=== PATIENT | male | born 1980 | race Caucasian/White ===

== ENCOUNTER 2021-09-02 12:32 | Emergency (ER) | payer OTHER, SELFPAY ==
[2021-09-02 12:42] VITALS: BP 150/105; PULSE 84; RESP 16; TEMP 37.2; O2SAT 100
--- NOTE | 2021-09-02 14:47 | ED.GENADULT ---
HPI - General Adult General Chief complaint: Skin/Abscess/Foreign Body Stated complaint: Insect Bite Time Seen by Provider: 09/02/21 14:47 Source: patient Mode of arrival: ambulatory Limitations: no limitations History of Present Illness HPI narrative: 41-year-old male presented for complaint of right lower abdominal skin changes after he was bit by a tick which he pulled off of his abdomen this morning. In the [place] yesterday. He states this is happened many times, however this time he noticed redness and mild pain surrounding the site where the tick was attached. He states he was able to pull it off, however it broke in half and is concerned he might have retained fragments of the tick in the skin. Pt Circled the area this morning, does not appear changed. Denies nausea, vomiting, fever or chills. Related Data Allergies Allergy/AdvReac Type Severity Reaction Status Date / Time Penicillins Allergy Unknown Rash Unverified 09/02/21 13:36 Review of Systems Review of Systems: CONSTITUTIONAL: Denies body aches, fever, chills, or sweats. EYES: Denies visual changes, redness, or discharge. ENT: Denies rhinorrhea, congestion, sore throat, or otalgia. CARDIOVASCULAR: Denies chest pain, palpitations, or edema. RESPIRATORY: Denies cough or dyspnea. GASTROINTESTINAL: Denies abdominal pain, nausea, vomiting, or diarrhea. GENITOURINARY: Denies dysuria or hematuria. SKIN: red round area to right lower abd MUSCULOSKELETAL: Denies back pain, joint pain, or myalgia. NEUROLOGIC: Denies headache, numbness, tingling, or weakness. PSYCH: Denies depression or anxiety. PMFSH Comments At time of signature, I have reviewed and agree with nursing past medical, surgical, social and family history unless otherwise noted. Please see nursing chart for further information. There is no relevant family history pertinent to the presenting complaint Exam Narrative: GENERAL: Well-appearing, well-nourished HEAD: Normocephalic, atraumatic. EYES: PERRLA, conjunctivae clear, and EOMI. ENT: Mucous membranes moist. Oropharynx without edema, erythema or lesions. NECK: Supple. No lymphadenopathy CHEST: Clear to auscultation. No respiratory distress. HEART: Regular rate and rhythm. SKIN: Warm, dry. Patch of erythema approx 1inch diameter to RLQ, center with black scab approx 2mm, no induration, fluctuance, or drainage NEURO: Alert and oriented x3. PSYCH: Normal mood and affect Course Course Emergency Course: Patient is aware of diagnosis, understands and agrees to treatment plan. Anticipatory guidance given. Patient agrees to follow-up as directed and is aware of reasons to seek care at the emergency department. Portions of this record may have been created with voice recognition software Level of Care: Express Care Visit Vital Signs Vital signs: Vital Signs Temperature 99 F 09/02/21 12:42 Pulse Rate 84 09/02/21 12:42 Respiratory Rate 16 09/02/21 12:42 Blood Pressure 150/105 H 09/02/21 12:42 Pulse Oximetry 100 09/02/21 12:42 Temperature 99 F 09/02/21 12:42 Pulse Rate 84 09/02/21 12:42 Respiratory Rate 16 09/02/21 12:42 Blood Pressure 150/105 H 09/02/21 12:42 Pulse Oximetry 100 09/02/21 12:42 Reviewed Medical Decision Making MDM Narrative Medical decision making narrative: Does not appear at this time to be erythema multiforme, bullous, SJS, TEN; no evidence at this time to suggest RMSF, endocarditis or Lyme disease patient looks well, no neurologic signs or symptoms; no headache, photophobia or neck pain; afebrile; appropriate for initial outpatient treatment; advised warm compresses and abx; discussed the importance of follow-up, patient agrees Instructed patient to go to nearest ER immediately for any worsening symptoms including but not limited to: fever, spreading rash, pain, sore throat, headache, dizziness, chest pain, trouble breathing, or any symptoms concerning to the patient. Differential Diagnosis Differ
== END 2021-09-02 15:00 | disposition home or self-care (01) ==
PROVIDERS: Emergency Provider Nurse Practitioner Family
DX: S30.861A Insect bite (nonvenomous) of abdominal wall, initial encounter (principal); W57.XXXA Bitten or stung by nonvenomous insect and other nonvenomous arthropods, initial encounter
CPT/HCPCS: 99203; G0463

== ENCOUNTER 2023-09-17 08:46 | Emergency (ER) | payer OTHER, SELFPAY ==
--- NOTE | ~2023-09-17 | XR_ITS ---
EXAMINATION: XR knee RT 3V DATE: 09/17/2023 09:38 INDICATION: Right knee pain. TECHNIQUE: 3 views of right knee were obtained. COMPARISON: None. FINDINGS: Bone alignment is normal. No fracture. 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 There is mild tricompartmental osteoart hritis. There is a small knee joint effusion. IMPRESSION: 1. Mild right knee osteoarthritis. 2. Small right knee joint effusion. Reviewed, dictated and finalized at location A.
[2023-09-17 08:47] VITALS: BP 151/87; PULSE 91; RESP 18; TEMP 36.6; O2SAT 100
--- NOTE | 2023-09-17 11:08 | ED.LOWEXIN ---
HPI - Extremity Injury (Lower) General Chief Complaint: Extremity Injury, Lower Stated Complaint: right knee pain Time Seen by Provider: 09/17/23 10:29 Source: patient Mode of arrival: ambulatory Limitations: no limitations History of Present Illness HPI Narrative: Patient is a 43-year-old male who presents the ED with report of right knee pain. Patient reports having pain to his R medial knee intermittently for the last 1.5 weeks. Denies any direct injury but notes he recently went on vacation with his family and did a lot of walking which has since aggravated his knee. Complains of pain with certain movements. Has been taking naproxen without much improvement. Denies swelling of knee or lower leg. Denies calf pain. Denies redness or warmth. Denies chest pain or shortness breath. Related Data Allergies Allergy/AdvReac Type Severity Reaction Status Date / Time Penicillins Allergy Unknown Rash Verified 09/17/23 08:46 Review of Systems Review of Systems: CONSTITUTIONAL: Denies fever, chills, or sweats. CARDIOVASCULAR: Denies chest pain. RESPIRATORY: Denies dyspnea. MUSCULOSKELETAL: See HPI. NEUROLOGIC: Denies headache, dizziness, numbness, or weakness. All systems reviewed & are unremarkable except as noted in HPI and below Exam Narrative: GENERAL: Well appearing, well-nourished, non-toxic, in no acute distress. HEAD: Normocephalic, atraumatic. RESPIRATORY: Airway patent, respirations nonlabored. CARDIOVASCULAR: Regular rate and rhythm. Pedal pulses intact. MUSCULOSKELETAL: Moves all extremities. No gross deformities. No significant limited ROM of R knee. TTP along medial joint space of right knee. Discomfort reported with valgus stress testing. No significant swelling of knee. No redness or warmth in the. No lower extremity swelling. No calf tenderness. Sensation is intact throughout right lower extremity. SKIN: Warm, dry, normal color. NEURO: A&O X3. Speech clear. PSYCHIATRIC: Appropriate mood and affect. Normal interaction. Course Vital Signs Vital signs: Vital Signs Temperature 97.8 F 09/17/23 08:47 Pulse Rate 91 09/17/23 08:47 Respiratory Rate 18 09/17/23 08:47 Blood Pressure 151/87 H 09/17/23 08:47 Pulse Oximetry 100 09/17/23 08:47 Oxygen Delivery Room Air 09/17/23 08:47 Temperature 97.8 F 09/17/23 08:47 Pulse Rate 91 09/17/23 08:47 Respiratory Rate 18 09/17/23 08:47 Blood Pressure 151/87 H 09/17/23 08:47 Pulse Oximetry 100 09/17/23 08:47 Oxygen Delivery Room Air 09/17/23 08:47 MDM - Extremity Injury (Lower) MDM Narrative Medical decision making narrative: Patient?s injury is consistent with musculoskeletal etiology. No signs of neurologic or vascular compromise on physical examination. Compartments are soft without signs of compartment syndrome. XR showing small joint effusion, no acute osseous abnormality, does show mild osteoarthritis. Pain is consistent with the strain. Discussed possibility of meniscal or ligamentous injury. No evidence of DVT on exam. No lower extremity swelling. No calf tenderness. Low suspicion for DVT at this time. Patient otherwise low risk Wells score. Patient is felt to be stable for discharge home and further outpatient management and treatment. Placed in knee immobilizer in the ED. Given crutches. Advised to continue Tylenol and ibuprofen as needed for pain. Will refer to orthopedics for further evaluation if needed. Discussed rice treatment, reasons to return. Patient in agreement with plan. Discharged in stable condition. Medical Records Attestation: I reviewed the patient's medical records. Imaging Data Attestation: I personally reviewed and interpreted this imaging study as follows: Radiologist's impression: ITS Impressions Knee X-Ray 09/17/23 09:41 IMPRESSION: 1. Mild right knee osteoarthritis. 2. Small right knee joint effusion. Discharge Plan Discharge Clinical Impression: Effus
== END 2023-09-17 11:36 | disposition home or self-care (01) ==
PROVIDERS: Emergency Provider Physician Assistant; PCP Physician Assistant; Referring Provider Family Medicine
DX: S86.911A Strain of unspecified muscle(s) and tendon(s) at lower leg level, right leg, initial encounter (principal); M23.91 Unspecified internal derangement of right knee; M25.461 Effusion, right knee; X58.XXXA Exposure to other specified factors, initial encounter
CPT/HCPCS: 73562; 99283

== ENCOUNTER 2024-05-06 15:59 | Outpatient (CLI) | payer OTHER, SELFPAY ==
[2024-05-06 16:22] LABS: Basophils Absolute Auto 0.02 K/mm3 (0.00-0.10); Basophils Percent Auto 0.3 % (0.0-1.0); Eosinophils Absolute Auto 0.07 K/mm3 (0.02-0.50); Hematocrit 46.7 % (40.0-54.0); Hemoglobin 16.2 g/dL (14.0-18.0); Immature Granulocyte Absolute 0.01 K/mm3 (0.00-0.00); Immature Granulocyte Percent A 0.1 % (0.0-0.0); Lymphocytes Absolute Auto 2.05 K/mm3 (1.10-4.50); Lymphocytes Percent Auto 29.7 % (18.0-42.0); Mean Corpuscular HGB Conc 34.7 g/dL (32-36); Mean Corpuscular Volume 89.5 fL (78.0-102.0); Mean Platelet Volume 9.1 fl (8.7-11.0); Monocytes Absolute Auto 0.99 K/mm3 (0.10-0.90); Monocytes Percent Auto 14.3 % (2.0-11.0); Neutrophils Absolute Auto 3.77 K/mm3 (1.70-7.20); Neutrophils Percent Auto 54.6 % (50.0-70.0); Platelet Count Result 316 K/mm3 (150-420); Red Blood Count 5.22 M/mm3 (4.70-6.10); Red Cell Distribution Width 12.2 % (11.6-14.4); White Blood Count 6.9 K/mm3 (4.8-10.8)
[2024-05-06 16:23] LABS: Add Urine Microscopic? NO; Appearance Urine Clear (Clear); Bilirubin Urine Negative (Negative); Blood Urine Negative (Negative); Color Urine Light Yellow (Yellow); Glucose Urine UA Negative (Negative); Ketones Urine Negative (Negative); Leukocyte Esterase Ur Negative (Negative); Nitrate Urine Negative (Negative); Protein Urine Negative (Negative); Specific Grav Ur 1.015 (1.010-1.020); Urobilinogen Urine 0.2 mg/dL (0.2-1.0)
[2024-05-06 16:40] LABS: Hemoglobin A1C 5.4 % (<5.7)
[2024-05-06 17:04] LABS: Alanine Aminotransferase 38 U/L (16-63); Albumin Level 4.2 g/dL (3.4-5.0); Alkaline Phosphatase 89 U/L (46-116); Anion Gap 10 mmol/L (4-12); Aspartate Amino Transferase 20 U/L (15-37); Bilirubin,Total 1.9 mg/dL (0.00-1.00); Blood Urea Nitrogen 19 mg/dL (7-18); Calcium 9.2 mg/dL (8.5-10.1); Carbon Dioxide 29 mmol/L (21-32); Chloride 100 mmol/L (98-108); Cholesterol 159 mg/dL (0-200); Estimated Glomerular Filt Rate > 60; Glucose 85 mg/dL (70-99); HDL Direct 54 mg/dL (40-60); LDL Cholesterol Calculated 88 mg/dL (<130); Osmolality Calculated 289 mOsm/kg (285-295); Potassium 4.4 mmol/L (3.5-5.1); Prostate Specific Antigen 1.4 ng/mL (< OR = 4.0); Sodium 139 mmol/L (136-145); Triglycerides 85 mg/dL (0-150)
[2024-05-06 17:19] LABS: Thyroid Stimulating Hormone Reflex 1.49 u/IU/mL (0.36-3.74)
== END 2024-05-06 16:00 | disposition home or self-care (01) ==
LOC: CHSLAB 16:00
PROVIDERS: PCP Nurse Practitioner Family; Visit Provider Nurse Practitioner Family
DX: Z13.1 Encounter for screening for diabetes mellitus (principal); Z68.35 Body mass index [BMI] 35.0-35.9, adult; E78.5 Hyperlipidemia, unspecified; Z12.5 Encounter for screening for malignant neoplasm of prostate; I10 Essential (primary) hypertension; G47.33 Obstructive sleep apnea (adult) (pediatric)
CPT/HCPCS: 36415; 80053; 80061; 81003; 83036; 84153; 84443; 85025; G0103

== ENCOUNTER 2024-08-11 02:09 | Day surgery (SDC) | payer OTHER, SELFPAY ==
[2024-07-28 10:47] VITALS: BMI 34.2
[2024-08-11 08:52] VITALS: BP 127/93; PULSE 94; RESP 18; TEMP 36.8; O2SAT 100
--- NOTE | 2024-08-11 09:02 | PM.HPGS ---
History of Present Illness History of Present Illness Consent: Risks, benefits, and alternatives have been discussed and questions answered. Patient agrees to proceed with procedure. Chief complaint: Screening for malignant neoplasm of colon Narrative: Chip Bañuelos is a 44 year old male here for first screening colonoscopy Review of Systems Review of Systems: All systems reviewed & are unremarkable except as noted in HPI and below PMFSH Past Medical History Medical History Total bilirubin, elevated Screening for colon cancer BMI 35.0-35.9,adult Hyperlipidemia ROSE on CPAP High cholesterol Hypertension Family History Family History Mother Cancer Hypertension Sibling Acute myocardial infarction Hypertension Grandparent Hypertension Grandparent Hypertension Grandparent Hypertension Grandparent Heart disease Social History Social History Years smoked: 15 Smoking status: Former smoker Tobacco type: e-cigarettes/vaping Alcohol intake: current Alcohol use details: occasionally Substance use: never Substance use type: does not use Do You Feel Safe in your Home?: Yes Lack of Transportation: No Lack of Food: Never True Current Housing: I Have Housing Concerned About Future Housing: No Difficulty Paying Gas/Electric Bills: No Difficulty Paying for Meds: No Currently Unemployed: No Education: Bachelor's Degree Difficulty w/ Childcare or Family Care: No Living arrangements: with family 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 Gender identity (if verbalized by the patient): Male Spiritual care concerns: No Meds Home Medications and Allergies Home Medications ?Medication ?Instructions ?Recorded ?Confirmed ?Type atorvastatin 20 mg tablet 20 mg PO DAILY #90 tabs 05/06/24 08/11/24 Rx losartan 50 mg tablet 50 mg PO DAILY #90 tabs 05/06/24 08/11/24 Rx multivitamin 1 tablet PO DAILY 05/06/24 08/11/24 History eszopiclone 2 mg tablet (Lunesta) 2 mg PO ONCE #1 tablet 08/08/24 08/11/24 Rx Allergies Allergy/AdvReac Type Severity Reaction Status Date / Time No Known Allergies Allergy Verified 08/11/24 08:51 Vital Signs Vital Signs - 24 hr 08/11/24 08:52 Temperature 98.2 F Pulse Rate 94 Respiratory Rate 18 Blood Pressure 127/93 H Pulse Oximetry 100 Oxygen Delivery Room Air Exam Const: General: comfortable and no acute distress HENMT: Face/Nose/Sinus: Normal nares present Eyes: General: appearance normal, both eyes and all related structures Neck: Neck: no JVD Resp: Auscultation: clear to auscultation bilaterally Cardio: Rate: regular rate Rhythm: regular rhythm GI: Inspection: non-distended GI Palp: Yes Soft to palpation Skin: General skin exam: normal color Neuro: General: gait normal Speech: normal speech Extrem: General: normal to inspection Psych: Mental Status: mental status grossly normal Assessment and Plan Assessment and plan (1) Screening for colon cancer: Code(s): Z12.11 - Encounter for screening for malignant neoplasm of colon Status: Acute Assessment and Plan: colonoscopy
--- NOTE | 2024-08-11 09:02 | WPDANESEPPF ---
Anes - Initial Pre Proc Eval Procedure: Operation Date: 08/11/24 10:00 Proposed Procedures p Screening Colonoscopy - Pablo Gaytan MD Date/Time: 08/11/24 09:02 Surgeon: Pablo Gaytan MD Pre Op Diagnosis: Screening for malignant neoplasm of colon Patient Data Age: 44 Gender: M Height: 1.8 m Weight: 114 kg Last Vital Signs Temp 36.8 C 08/11/24 08:52 Pulse 94 08/11/24 08:52 Resp 18 08/11/24 08:52 BP 127/93 H 08/11/24 08:52 Pulse Ox 100 08/11/24 08:52 O2 Del Method Room Air 08/11/24 08:52 Allergies Allergy/AdvReac Type Severity Reaction Status Date / Time No Known Allergies Allergy Verified 08/11/24 08:51 Home Medications ?Medication ?Instructions ?Recorded ?Confirmed ?Type atorvastatin 20 mg tablet 20 mg PO DAILY #90 tabs 05/06/24 08/11/24 Rx losartan 50 mg tablet 50 mg PO DAILY #90 tabs 05/06/24 08/11/24 Rx multivitamin 1 tablet PO DAILY 05/06/24 08/11/24 History eszopiclone 2 mg tablet (Lunesta) 2 mg PO ONCE #1 tablet 08/08/24 08/11/24 Rx Patient hx anesthesia problems: none Family hx anesthesia problems: none Results Review: All pre-operative results and documents have been reviewed as part of the pre-operative evaluation. [facility] Past Medical History Medical History Total bilirubin, elevated Screening for colon cancer BMI 35.0-35.9,adult Hyperlipidemia ROSE on CPAP High cholesterol Hypertension Family History Family History Mother Cancer Hypertension Sibling Acute myocardial infarction Hypertension Grandparent Hypertension Grandparent Hypertension Grandparent Hypertension Grandparent Heart disease Social History Social History Years smoked: 15 Smoking status: Former smoker Tobacco type: e-cigarettes/vaping Alcohol intake: current Alcohol use details: occasionally Substance use: never Substance use type: does not use Do You Feel Safe in your Home?: Yes Lack of Transportation: No Lack of Food: Never True Current Housing: I Have Housing Concerned About Future Housing: No Difficulty Paying Gas/Electric Bills: No Difficulty Paying for Meds: No Currently Unemployed: No Education: Bachelor's Degree Difficulty w/ Childcare or Family Care: No Living arrangements: with family 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 Informed Consent: The patient's anesthetic plan and its attendant risks and benefits were discussed with the patient/family/POA. Questions were solicited and answers provided to the satisfaction of the patient/family/POA.
[2024-08-11] MEDS: LACTATED RINGERS 1,000 ML 150 ML IV CONT (09:03)
[2024-08-11 09:17] VITALS: BP 128/89; PULSE 81; RESP 18; O2SAT 98
[2024-08-11 09:27] VITALS: BP 115/79; PULSE 83; RESP 18; O2SAT 99
[2024-08-11 09:37] VITALS: BP 124/84; PULSE 86; RESP 18; O2SAT 99
== END 2024-08-11 09:45 | disposition home or self-care (01) ==
PROVIDERS: PCP Nurse Practitioner Family; Referring Provider Nurse Practitioner Family; Visit Provider Internal Medicine Gastroenterology
PROC: 0DJD8ZZ Inspection of Lower Intestinal Tract, Via Natural or Artificial Opening Endoscopic (ICD-10-PCS; CPT 45378; principal; 2024-08-11 10:00)
DX: Z12.11 Encounter for screening for malignant neoplasm of colon (principal); K57.30 Diverticulosis of large intestine without perforation or abscess without bleeding; K64.8 Other hemorrhoids; Z87.891 Personal history of nicotine dependence; E66.9 Obesity, unspecified; Z68.35 Body mass index [BMI] 35.0-35.9, adult
CPT/HCPCS: 45378; J2704; J7120

== ENCOUNTER 2024-09-10 09:26 | Outpatient (CLI) | payer OTHER, SELFPAY ==
--- NOTE | 2024-10-06 09:24 | P.SLEEP_ITS ---
Sleep Study Date of Study: 09/10/24 Ordering Provider: DANIEL Cruz Interpreting Physician: Opal Monroe DO Sleep Study Type: Split Polysomnogram Height: 1.83 m Weight: 113.398 kg Body Mass Index: 33.9 Neck Circumference (inches): 18 [place]: 3 Reason for Sleep Study New study required to get new equipment Sleep History The patient is a 44-year-old male that had a sleep study by the pulmonary group for evaluation of sleep apnea. The patient was previously diagnosed with sleep apnea and has been on CPAP the patient denies awakening from sleep short of breath. He denies awakening at night with heartburn, belching or cough. He constantly snores loudly enough that others complain. He occasionally has trouble sleeping when he has a cold. He frequently wakes up gasping for air throughout the night. He occasionally has breathing problems at night observed by himself or others. He occasionally sweats excessively at night. He denies having heart palpitations or irregular heartbeats during the night. He denies falling asleep during the day and while driving. He denies sleep paralysis, cataplexy and hypnagogic/ hypnopompic hallucinations. He denies having trouble at school or work due to sleepiness. He denies feeling afraid of going to sleep. He rarely has nightmares. He occasionally remembers his dreams. He rarely has thoughts racing through his mind. He denies feeling sad or depressed. He rarely has anxiety. He denies having muscular tension. He occasionally notices parts of his body jerk. He rarely kicks during the night. He denies having crawling and aching feelings in his legs and denies having leg pain during the night. He rarely grinds his teeth during sleep but never awakens with morning jaw pain. He denies being bothered by pain during the day and denies being awakened by pain during the night. He rarely wakes up feeling stiff in the morning. He rarely wakes up with sore or achy muscles. He denies waking up with pain in the neck, spine and other joints. He goes to bed 10:30 p.m. on weekdays and between 10 30-11 p.m. on the weekends. It takes him 30-45 minutes to fall asleep. He wakes up once throughout the night to urinate is able to fall back asleep within a few minutes. He wakes up at 6:00 a.m. on weekdays and 7:00 a.m. on the weekends. He typically gets 4-6 hours of sleep per night. He will stay in bed for 5 minutes after waking up in the morning. He currently lives with his . He denies consuming any caffeinated beverages within 2 hours of bedtime. He denies engaging in physical exercise before bedtime. He will read and watch television before falling asleep. He denies taking naps in afternoon or the evening. He consumes 1 caffeinated beverage per day. He is a former smoker. He denies alcohol and recreational drug use. [facility] Past Medical History Medical History Total bilirubin, elevated Screening for colon cancer BMI 35.0-35.9,adult Hyperlipidemia ROSE on CPAP High cholesterol Hypertension Family History Family History Mother Cancer Hypertension Sibling Acute myocardial infarction Hypertension Grandparent Hypertension Grandparent Hypertension Grandparent Hypertension Grandparent Heart disease Social History Social History Years smoked: 15 Smoking status: Former smoker Tobacco type: e-cigarettes/vaping Alcohol intake: current Alcohol use details: occasionally Substance use: never Substance use type: does not use Do You Feel Safe in your Home?: Yes Lack of Transportation: No Lack of Food: Never True Current Housing: I Have Housing Concerned About Future Housing: No Difficulty Paying Gas/Electric Bills: No Difficulty Paying for Meds: No Currently Unemployed: No Education: Bachelor's Degree Difficulty w/ Childcare or Family Care: No Living arrangements: with family 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 Gender identity (if verbalized by the patient): Male Spiritual care concerns: No Medications Home Medications ?Medication ?Instructions ?Recorded ?Confirmed ?Type atorvastatin 20 mg tablet 20 mg PO DAILY #90 tabs 05/06/24 08/11/24 Rx losartan 50 mg tablet 50 mg PO DAILY #90 tabs 05/06/24 08/11/24 Rx multivitamin 1 tablet PO DAILY 05/06/24 08/11/24 History eszopiclone 2 mg tablet (Lunesta) 2 mg PO ONCE #1 tablet 08/08/24 08/11/24 Rx Sleep Procedure A full night split study using the [employer] multi-channel system recorded the standard physiologic parameters including EEG, EOG, submentalis EMG, anterior tibialis EMG, EKG, body position, nasal and oral airflow using nasal pressure sensor and thermistor.? Respiratory parameters of chest and abdominal movements were recorded with Respiratory Inductance Plethysmography belts. Oxygen saturation was recorded by pulse oximetry. Video monitoring was also performed. Sleep stages, periodic limb movements, and EEG arousals were scored in 30 second epochs according to the criteria of the AASM Scoring Manual. The Apnea-Hypopnea Index was calculated using [facility] guidelines for definition of hypopnea with 4% O2 desaturations while scoring respiratory events. Sleep Architecture During the diagnostic portion of the study, the total recording time was 149.8 minutes. The total sleep time was 134.0 minutes. Sleep latency was 2.3 minutes.? REM sleep was not achieved during this portion of the study. Sleep Efficiency was 89.5%. The patient had 9 awakenings for an awakening index of 4.0. Wake after sleep onset time was 13.5 minutes. The patient spent 9.5 minutes, 7.1% of total sleep time in Stage N1. The patient spent 104.0 minutes, 77.6% in Stage N2. The patient spent 20.5 minutes, 15.3% in Stage N3. The patient spent 0.0 minutes, 0.0% in Stage REM sleep. At 12:34:04 AM the patient was placed on PAP treatment and was titrated at pressures ranging from 5 cm H20 up to 13 cm H20. During the treatment portion of the study, the total recording time was 309.9 minutes.? The total sleep time was 258.0 minutes. Sleep latency was 4.5 minutes. REM latency was 10.5 minutes. Sleep Efficiency was 83.2%. Wake after Sleep Onset time was 47.0 minutes. The patient spent 10.0 minutes, 3.9% of total sleep time in Stage N1. The patient spent 157.5 minutes, 61.0% in Stage N2. The patient spent 0.0 minutes, 0.0% in Stage N3. The patient spent 90.5 minutes, 35.1% in Stage REM. Respiratory Analysis During the diagnostic portion of the study, the patient had 34 hypopneas, 1 obstructive apnea and 1 mixed apnea for an overall Apnea Hypopnea Index of 16.1 events per hour. The REM Apnea Hypopnea Index was 0. The NREM Apnea Hypopnea Index was 16.1. The patient had a Central Apnea Hypopnea Index of 0. There was no evidence of Adán-Shah Respirations. During the treatment portion of the study, the patient had 13 hypopneas, 1 obstructive apnea and 1 central apnea for an overall Apnea Hypopnea Index of 3.5 events per hour. The REM Apnea Hypopnea Index was 8.6. The NREM Apnea Hypopnea Index was 0.7. The patient had a Central Apnea Hypopnea Index of 0.2. There was no evidence of Adán-Shah Respirations. The patient was started on CPAP 5 cm H2O and titrated to CPAP 13 cm H2O due to hypopneas. The patient was able to fall asleep starting on CPAP 5 cm H2O. The patient was able to achieve REM sleep starting on CPAP 5 cm H2O. The patient was able to achieve a residual AHi less than 5 with both NREM and REM sleep in the supine position on 10 cm h2O and 11 cm H2O. On CPAP 10 cm H2O, the patient spent 24 minutes in NREM and 30 minutes in REM with 2 hypopneas, resulting in an AHI of 2.2. On CPAP 11 cm H2O, the patient spent 37 minutes in NREM and 9 minutes in REM with 2 hypopneas, resulting in an AHI of 2.6. The patient had a sleep efficiency of 98.2% on 10 cm H2O and 79.3% on 11 cm H2O. Arousals During the diagnostic portion of the study, there were a total of 74 arousals for an arousal index of 33.1.? There were 19 respiratory arousals for an index of 8.5. There were 19 periodic limb movement arousals for an index of 8.5.? There were 10 isolated limb movement arousals for an index of 4.5. There were 27 spontaneous arousals for an index of 12.1. During the treatment portion of the study, there were a total of 75 arousals for an index of 17.4.? There were 20 respiratory arousals for an index of 4.7. There were 10 periodic limb movement arousals for an index of 2.3.? There were 23 isolated limb movement arousals for an index of 5.3. There were 23 spontaneous arousals for an index of 5.3. Periodic Limb Movements During the diagnostic portion of the study, the patient had 14 isolated limb movements with an index of 6.3. The patient had 92 periodic limb movements with an index of 41.2, which is elevated (normal < 15). The patient had a total of 106 limb movements with a total limb movement index of 47.5. During the treatment portion of the study, the patient had 28 isolated limb movements with an index of 6.5. The patient had 80 periodic limb movements with an index of 18.6, which is elevated (normal < 15). The patient had a total of 108 limb movements with a total limb movement index of 25.1. Oximetry Data During the diagnostic portion of the study, the patient had an average oxygen saturation of 95.6% in wake with a minimum oxygen saturation of 89% and a maximum oxygen saturation of 99%. The patient had an average oxygen saturation of 92.9% in sleep with a minimum oxygen saturation of 86.0% and a maximum oxygen saturation of 99.0%. The patient had 53 oxygen desaturations resulting in an Oxygen Desaturation Index of 24.2. The patient spent 0.7 minutes, 0.5% of total sleep time with an oxygen saturation less than 88%. During the treatment portion of the study, the patient had an average oxygen saturation of 97.4% in wake with a minimum oxygen saturation of 93.0% and a maximum oxygen saturation of 100.0%. The patient had an average oxygen saturation of 95.9% in sleep with a minimum oxygen saturation of 89.0% and a maximum oxygen saturation of 98.0%. The patient had 32 oxygen desaturations resulting in an Oxygen Desaturation Index of 7.4. The patient spent 0 minutes of total sleep time with an oxygen saturation less than 88%. Snoring Profile Moderate to loud snoring was present in the baseline portion of the study. The snoring resolved once the patient was titrated to 11 cm H2O. Cardiac Profile The EKG lead showed normal sinus rhythm. No arrhythmias or premature beats were seen. During the diagnostic portion of the study, the average pulse rate was 66.0 bpm.? The minimum pulse rate was 54.0 bpm. The maximum pulse rate was 96.0 bpm. During the treatment portion of the study, the average pulse rate was 58.7 bpm.? The minimum pulse rate was 49.0 bpm. The maximum pulse rate was 96.0 bpm. EEG Profile No signs of seizure activity seen. Assessment and Plan Assessment and Plan (1) ROSE (obstructive sleep apnea): Code(s): G47.33 - Obstructive sleep apnea (adult) (pediatric) Status: Acute Assessment and Plan: In the baseline portion of the study, the patient had an overall AHI of 16.1 with desaturation down to 86%. This is consistent with moderate sleep apnea. The patient was started on CPAP 5 cm H2O and titrated to CPAP 13 cm H2O due to hypopneas. I recommend that the patient be prescribed CPAP 11 cm H2O, size medium Resmed AirFit F20 full face mask, CPAP filters/tubing and heated humidity. This should be used with all episodes of sleep.? Compliance should be reviewed within 31-90 days of starting therapy for usage greater than 4 hours per night greater than 70% of the nights. The patient should be asked about symptoms such as?excessive daytime sleepiness, quality of sleep, decreased nocturia, increased?mental functioning such as memory, mood, and concentration. While the patient had a significant amount of periodic limb movements during sleep, the frequency drastically decreased once the patient was titrated to the optimal pressure setting. I recommend asking the patient about leg movements during his first compliance visit. Data The data obtained during this sleep study is adequate for interpretation. Certification This sleep study has been reviewed by a board certified sleep medicine physician.
[2024-10-06 11:20] VITALS: BMI 33.9
== END 2024-09-11 06:09 | disposition home or self-care (01) ==
LOC: ANHCSM 09:34
PROVIDERS: PCP Nurse Practitioner Family; Visit Provider Physician Assistant
DX: G47.33 Obstructive sleep apnea (adult) (pediatric) (principal)
CPT/HCPCS: 95811